=== PATIENT | male | born 1960 | race Hispanic/Latino ===

== ENCOUNTER 2022-10-28 14:36 | Inpatient (IN) | payer OTHER ==
[~2022-10-28] VITALS: Ht 170.2 cm; Wt 71.2 kg
[~2022-10-28 14:36] MED LIST changes: -GADOBENATE DIMEGLUMINE 1 ML IV ONE; -LACTATED RINGER'S 1,000 ML ONE; -ONDANSETRON HCL8 MG PO; +POVIDONE IODINE 0.05% 0.05 % ML PO ONE; -PROPOFOL IV EMULSION 0 ML IV ONE; +PROPOFOL IV EMULSION 10 MG/ML 20 ML VIAL ONE; +SUCCINYLCHOLINE CHLORIDE 20 MG/ML 10ML VIAL ONE
[2022-10-28] MEDS ORDERED: ONDANSETRON HCL INJ 2MG/ML 2ML 2 MG/ML VIAL IV PRN (15:15)
[2022-10-28 16:45] LABS: CLARITY,URINE TURBID (CLEAR); COLOR,URINE BROWN (YELLOW); KETONES,URINE 1+ (NEGATIVE); LEUKOCYTE ESTERASE ,URINE NEGATIVE (NEGATIVE); NITRITE,URINE NEGATIVE (NEGATIVE); PROTEIN,URINE DIPSTICK 1+ (NEGATIVE); URINE UROBILINOGEN 0.2 mg/dL (0.2 - 1)
[2022-10-28 16:55] LABS: AMORPHOUS SEDIMENT,URINE MANY (FEW); BACTERIA,URINE FEW /HPF; WBC,URINE (MAN) 0-5 /HPF (0-5)
[2022-10-28 21:53] VITALS: BP 109/64
[2022-10-28 22:00] VITALS: BP 109/64
[2022-10-28] MEDS ORDERED: KETOROLAC TROMETHAMINE 30 MG/ML VIAL IM PRN (22:45)
[2022-10-29] VITALS (8 sets, daily range): BP systolic 100–122; BP diastolic 63–74
[2022-10-29] MEDS: LACTATED RINGER'S 1,000 ML INJ SCH ×3 (02:46→18:30)
[2022-10-29 05:01] LABS: BASOPHILS # (AUTO) 0.1 (0.0-0.1); BASOPHILS % 1.1 % (0.0-1.0); EOSINOPHILS # (AUTO) 0.2 (0.0-0.4); EOSINOPHILS % 2.8 % (0.0-6.0); HEMATOCRIT 37.5 % (38.2-49.6); LYMPHOCYTES # (AUTO) 0.8 (1.0-3.2); LYMPHOCYTES % 10.8 % (18.0-39.1); MEAN CORPUSCULAR HEMOGLOBIN 30.7 pg (28-32); MEAN CORPUSCULAR HGB CONC 34.7 g/dL (31-35); MEAN CORPUSCULAR VOLUME 88.4 fL (81-99); MONOCYTES # (AUTO) 0.7 (0.2-0.8); MONOCYTES % 9.7 % (4.4-11.3); NEUTROPHILS # (AUTO) 5.7 (2.1-6.9); NEUTROPHILS % 75.1 % (38.7-80.0); PLATELET COUNT 237 x10e3/uL (140-360); RED BLOOD COUNT 4.24 x10e6/uL (4.3-5.7); RED CELL DISTRIBUTION WIDTH 18.9 % (11.7-14.4)
[2022-10-29] MEDS ORDERED: ONDANSETRON HCL8 MG PO (05:08)
[2022-10-29 05:11] LABS: INR 1.35; PROTHROMBIN TIME 17.2 seconds (11.9-14.5)
[2022-10-29 05:12] LABS: PARTIAL THROMBOPLASTIN TIME 50.7 seconds (23.8-35.5)
[2022-10-29 05:19] LABS: ALBUMIN 1.8 g/dL (3.5-5.0); ALBUMIN/GLOBULIN RATIO 0.5 (0.8-2.0); ANION GAP 16.7 mmol/L (8-16); CALCIUM 8.6 mg/dL (8.4-10.2); CREATININE, SERUM 0.62 mg/dL (0.72-1.25); POTASSIUM 3.7 mmol/L (3.5-5.1)
[2022-10-29 06:01] LABS: BILIRUBIN,DIRECT 3.8 mg/dL (0.0-0.5)
[2022-10-29] MEDS ORDERED: IOPAMIDOL 370 MG/ML 100 ML INFUS..BTL INJ ONE (13:47)
[2022-10-29] MEDS ORDERED: SODIUM CHLORIDE 0.9% 250ML 250 ML ONE (17:42)
[2022-10-30 00:34] VITALS: BP 114/71
[2022-10-30] MEDS: LACTATED RINGER'S 1,000 ML INJ SCH (02:58)
[2022-10-30 05:10] VITALS: BP 110/69
[2022-10-30 06:08] LABS: BASOPHILS # (AUTO) 0.1 (0.0-0.1); BASOPHILS % 1.3 % (0.0-1.0); EOSINOPHILS # (AUTO) 0.2 (0.0-0.4); EOSINOPHILS % 2.9 % (0.0-6.0); HEMATOCRIT 35.3 % (38.2-49.6); HEMOGLOBIN 12.2 g/dL (14.0-18.0); LYMPHOCYTES # (AUTO) 0.6 (1.0-3.2); LYMPHOCYTES % 7.9 % (18.0-39.1); MEAN CORPUSCULAR HEMOGLOBIN 30.7 pg (28-32); MEAN CORPUSCULAR HGB CONC 34.6 g/dL (31-35); MEAN CORPUSCULAR VOLUME 88.9 fL (81-99); MONOCYTES # (AUTO) 0.7 (0.2-0.8); MONOCYTES % 10.2 % (4.4-11.3); NEUTROPHILS # (AUTO) 5.5 (2.1-6.9); NEUTROPHILS % 76.9 % (38.7-80.0); PLATELET COUNT 257 x10e3/uL (140-360); RED BLOOD COUNT 3.97 x10e6/uL (4.3-5.7); RED CELL DISTRIBUTION WIDTH 18.6 % (11.7-14.4)
[2022-10-30 06:18] LABS: INR 1.28; PROTHROMBIN TIME 16.5 seconds (11.9-14.5)
[2022-10-30 06:34] LABS: ALBUMIN 1.9 g/dL (3.5-5.0); ALBUMIN/GLOBULIN RATIO 0.5 (0.8-2.0); ANION GAP 14.5 mmol/L (8-16); CALCIUM 8.4 mg/dL (8.4-10.2); CREATININE, SERUM 0.62 mg/dL (0.72-1.25); MAGNESIUM 2.1 MG/DL (1.3-2.1); POTASSIUM 3.5 mmol/L (3.5-5.1)
[2022-10-30] MEDS ORDERED: INDOMETHACIN 50 MG SUPP.RECT RC ONE (07:25)
[2022-10-30] MEDS ORDERED: IOPAMIDOL 610MG/1ML 300 MG/ML VIAL IV ONE (07:27)
[2022-10-30] MEDS ORDERED: SODIUM CHLORIDE 0.9% 100 ML ONE (07:31)
[2022-10-30] MEDS ORDERED: PHENYLEPHRINE HCL 1% 10 MG/ML VIAL ONE (07:31)
[2022-10-30 08:00] VITALS: BP 122/74
[2022-10-30 08:45] VITALS: BP 112/72
[2022-10-30] MEDS ORDERED: FENTANYL CITRATE/PF 100MCG/2 ML INJ ONE (12:07)
== END 2022-10-30 10:55 | disposition home or self-care (01) | DRG 445 ==
LOC: ER 14:38 → ERHOLD 15:02 → MED/SURG2 19:36
PROVIDERS: ADMIT Internal Medicine; ATTEND Internal Medicine
PROC: 0FBC8ZX Excision of Ampulla of Vater, Via Natural or Artificial Opening Endoscopic, Diagnostic (ICD-10-PCS; principal; 2022-10-30 07:19)
DX: K83.1 Obstruction of bile duct (principal); C77.2 Secondary and unspecified malignant neoplasm of intra-abdominal lymph nodes; C78.1 Secondary malignant neoplasm of mediastinum; C79.51 Secondary malignant neoplasm of bone; C79.89 Secondary malignant neoplasm of other specified sites; K21.9 Gastro-esophageal reflux disease without esophagitis; M89.9 Disorder of bone, unspecified; R59.0 Localized enlarged lymph nodes; K83.8 Other specified diseases of biliary tract; C80.1 Malignant (primary) neoplasm, unspecified; D13.5 Benign neoplasm of extrahepatic bile ducts; R63.4 Abnormal weight loss; Z20.822 Contact with and (suspected) exposure to COVID-19; Z86.16 Personal history of COVID-19; Z90.49 Acquired absence of other specified parts of digestive tract; Z68.25 Body mass index [BMI] 25.0-25.9, adult
CPT/HCPCS: 36415; 43239; 43260; 71046; 71260; 74183; 76536; 80053; 81001; 82105; 82150; 82248; 82378; 83690; 83735; 84155; 85025; 85610; 85730; 86301; 86850; 86900; 88304; 88305; 99284; J0330; J2370; J7050; P9017; Q9967

== ENCOUNTER → 2022-10-28 | Day surgery (SDC) | payer OTHER ==
[~2022-10-28] MED LIST: GADOBENATE DIMEGLUMINE 1 ML IV ONE; HYDROXYZIN10 MG/5 ML PO; LACTATED RINGER'S 1,000 ML ONE; ONDANSETRON HCL8 MG PO; PANTOPRAZOLE SO40 MG PO; PROMETHAZINE HC25 M1 PO; PROPOFOL IV EMULSION 0 ML IV ONE
[2022-10-28 13:28] LABS: BASOPHILS # (AUTO) 0.1 (0.0-0.1); BASOPHILS % 1.3 % (0.0-1.0); EOSINOPHILS # (AUTO) 0.1 (0.0-0.4); EOSINOPHILS % 1.3 % (0.0-6.0); HEMATOCRIT 40.2 % (38.2-49.6); LYMPHOCYTES # (AUTO) 0.8 (1.0-3.2); LYMPHOCYTES % 9.7 % (18.0-39.1); MEAN CORPUSCULAR HEMOGLOBIN 30.9 pg (28-32); MEAN CORPUSCULAR HGB CONC 34.8 g/dL (31-35); MEAN CORPUSCULAR VOLUME 88.7 fL (81-99); MONOCYTES # (AUTO) 0.8 (0.2-0.8); MONOCYTES % 9.5 % (4.4-11.3); NEUTROPHILS # (AUTO) 6.7 (2.1-6.9); NEUTROPHILS % 77.5 % (38.7-80.0); PLATELET COUNT 253 x10e3/uL (140-360); RED BLOOD COUNT 4.53 x10e6/uL (4.3-5.7)
[2022-10-28 13:47] LABS: ALANINE AMINOTRANSFERASE 66 IU/L (0-55); ALBUMIN 2.1 g/dL (3.5-5.0); ALBUMIN/GLOBULIN RATIO 0.5 (0.8-2.0); ALKALINE PHOSPHATASE 424 IU/L (40-150); ANION GAP 17.2 mmol/L (8-16); BLOOD UREA NITROGEN 9 mg/dL (7-26); BUN/CREATININE RATIO 13 (6-25); CALCIUM 9.1 mg/dL (8.4-10.2); CARBON DIOXIDE 22 mmol/L (22-29); CHLORIDE 103 mmol/L (98-107); CREATININE, SERUM 0.67 mg/dL (0.72-1.25); GLUCOSE 94 mg/dL (74-118); POTASSIUM 4.2 mmol/L (3.5-5.1); SODIUM 138 mmol/L (136-145)
== END | disposition home or self-care (01) ==
LOC: OR 12:00
PROVIDERS: ATTEND Internal Medicine Gastroenterology
DX: R11.0 Nausea (principal); R14.0 Abdominal distension (gaseous); R10.10 Upper abdominal pain, unspecified; R17 Unspecified jaundice; R63.4 Abnormal weight loss; R53.83 Other fatigue; Z53.8 Procedure and treatment not carried out for other reasons; Z01.810 Encounter for preprocedural cardiovascular examination
CPT/HCPCS: 36415; 80053; 85025; 93005; A9577; J7121

== ENCOUNTER → 2022-11-14 | Outpatient (CLI) | payer OTHER ==
[~2022-11-14] MED LIST changes: +ONDANSETRON HCL8 MG PO; -POVIDONE IODINE 0.05% 0.05 % ML PO ONE; -PROPOFOL IV EMULSION 10 MG/ML 20 ML VIAL ONE; -SUCCINYLCHOLINE CHLORIDE 20 MG/ML 10ML VIAL ONE
== END ==
LOC: DX 14:34
PROVIDERS: ATTEND Internal Medicine
DX: Z13.820 Encounter for screening for osteoporosis (principal); Z87.311 Personal history of (healed) other pathological fracture
CPT/HCPCS: 77080

== ENCOUNTER → 2023-01-02 | Outpatient (CLI) | payer OTHER ==
[~2023-01-02] MED LIST changes: +IOPAMIDOL 370 MG/ML 100 ML INFUS..BTL INJ ONE
[2023-01-02 09:45] LABS: CREATININE, SERUM 0.7 mg/dL (0.72-1.25)
== END ==
LOC: CT 07:34
PROVIDERS: ATTEND Internal Medicine Hematology & Oncology
DX: R07.9 Chest pain, unspecified (principal); R11.2 Nausea with vomiting, unspecified
CPT/HCPCS: 36415; 71260; 74177; 82565; 84520; Q9967